=== PATIENT | female | born 1995 | race Hispanic/Latino ===

== ENCOUNTER 2017-04-26 13:43 | Emergency (ER) | payer OTHER ==
[~2017-04-26] VITALS: Ht 165.1 cm; Wt 79.4 kg
[2017-04-26] MEDS ORDERED: SODIUM CHLORIDE 0.9% 1000ML 1,000 ML IV SCH (15:30)
[2017-04-26] MEDS ORDERED: IBUPROFEN 600 MG TAB PO STA (15:34)
[2017-04-26 16:44] VITALS: BP 127/77
== END 2017-04-26 16:40 | disposition home or self-care (01) ==
LOC: FSED 13:43
DX: S50.02XA Contusion of left elbow, initial encounter (principal); S80.02XA Contusion of left knee, initial encounter; S20.01XA Contusion of right breast, initial encounter; Y92.488 Other paved roadways as the place of occurrence of the external cause; V47.0XXA Car driver injured in collision with fixed or stationary object in nontraffic accident, initial encounter
CPT/HCPCS: 71046; 74177; 80053; 81003; 81025; 85025; 87086; 99284